=== PATIENT | female | born 1950 | race Caucasian/White ===

== ENCOUNTER 2016-06-19 20:28 | Emergency (ER) | payer OTHER ==
[~2016-06-19 20:28] MED LIST: ALBUTEROL SULF0.5 ML INH/SOL; ASPIR 8181 MG PO; BENTYL20 MG PO; CALCIUM CARBON260 M1 PO; CALCIUM500 M1 PO; CELEBREX100 M1 PO; CENTRUM SILVER1 TA1 PO; CIPRO 500MG TA500 MG PO; COLACE100 M1 PO; ECOTRIN81 MG PO; FLAG500 PO; GLIPIZIDE10 M2 PO; GLUCOPHAGE850 M2 PO; GLUCOPHAGE850 MG PO; GLUCOTROL10 MG PO; HYZAAR 25 MG-101 TAB PO; JANUVIA 100MG100 MG PO; JANUVIA100 M1 PO; LANTUS SOL100 UNIT/1 SC; LANTUS100 U/ML SC; LANTUS100 UNIT/1 SC; LIDOCAINE1 EACH TOP; LOPRESSOR100 MG PO; LOSARTAN POTASS1 TA2 PO; MILK THISTLE200 MG PO; NORVASC 10MG10 MG PO; NOVOLOG FL100 UNIT/1 SC; NOVOLOG100 UNIT/2 SC; OXYCODONE HCL5 M1 PO; PAZEO2.5 ML OPH; PREDNISONE 20MG20 MG PO; PROAIR HFA0.09 MG/Ac INH; SIMVASTATIN20 MG PO; SYMBICORT 160/41 PUF INH; TYLENOL ARTHRI650 M1 PO; TYLENOL EXTRA500 M2 PO; ULTRAM50 M1 PO; VALIUM2 MG PO; VENTOLIN1 PUF INH; VITAMIN C PO; VITAMIN D1000 UNIT PO; VITAMIN D2000 UNIT PO; [UNRECOGNIZED DRUG - OTHER] PO; [UNRECOGNIZED DRUG - OTHER] TD
--- NOTE | 2016-06-19 21:06 | ED GENERAL ADULT ---
History of Present Illness General Chief Complaint: General Adult Stated Complaint: "HERE FOR FOLLOW UP" Source: patient Exam Limitations: no limitations Allergies Coded Allergies: acetaminophen (From TYLENOL) (HEP C 03/06/16) Reconcile Medications Albuterol Sulfate (Ventolin) 1 UNIT PUF 2 PUF INH Q4-6 PRN PRN SHORTNESS OF BREATH Amlodipine (Norvasc 10MG) 10 MG TABLET 1 TAB PO DAILY HEART (Reported) Aspirin (Ecotrin) 81 MG ECT 1 TAB PO DAILY HEART/BLOOD (Reported) Budesonide/Formoterol Fumara (Symbicort 160-4.5 Mcg Inhaler) 160 MCG/4.5 MCG PUF 2 PUF INH BID ASTHMA (Reported) Calcium Carbonate (Calcium) 500 MG TABLET 1 TAB PO DAILY supplement Cholecalciferol (Vitamin D3) (Vitamin D) 1,000 UNIT TABLET 2 TAB PO DAILY SUPPLEMENT Docusate Sodium (Colace) 100 MG CAPSULE 1 CAP PO BID CONSTIPATION... TAKE WITH OXYCODONE TO PREVENT CONSTIPATION Glipizide 10 MG TABLET 1 TAB PO BID DM (Reported) Insulin-Lantus (Lantus) 100 UNIT/ML VIAL 36-38 UNITS SC QPM DM (Reported) LOSARTAN/HYDROCHLOROTHIAZIDE (Hyzaar 100-25 Tablet) 1 EACH TABLET 1 TAB PO DAILY HYPERTENSION (Reported) Metformin HCl (Glucophage) 850 MG TABLET 1 TAB PO BID DIABETES Metoprolol Tartrate (Lopressor) 100 MG TAB 1 TAB PO BID HYPERTENSION ( Reported) Oxycodone HCl 5 MG TABLET 1 TAB PO BIDP PRN PAIN TEN...[id number] Simvastatin (Zocor) 20 MG TAB 20 MG PO DAILY CHOLESTEROL (Reported) Sitagliptin Phosphate (Januvia) (Unknown Strength) TABLET (Unknown Dose) PO DAILY UNKNOWN (Reported) Triage Note: TRIAGE: 65 Y/O FEMALE PRESENTS WITH FAMILY FOR A "FOLLOW UP VISIT" S/P SEEN THE OTHER DAY AND HAD A CT SCAN WITH IV CONTRAST. REPORTS WAS INSTRUCTED TO FOLLOW UP TO "CHECK TO SEE IF THERE'S A RESIDUAL IN HER BLOOD OF THE DYE." Triage Nurses Notes Reviewed? yes Onset: Gradual Duration: better Timing: recent history Severity: mild Severity Numbers: 1 No Modifying Factors: none HPI: Patient is a 65-year-old female with a past medical history of type 2 diabetes currently on metformin who is evaluated and seen at [facility] emergency room on June 17 for concerns of abdominal bloating shortness of breath and back pain however no trauma has occurred patient received contrast CT scans in which patient was advised to discontinue metformin for 48 hours IN which patient has been compliant FOR THIS REQUEST. patient was given pain medications of oxycodone and Colace where patient has had significant resolution of presenting complaints on that day. Patient presents today for evaluation of kidney function to return to using metformin tomorrow. (AMMON RODRÍGUEZ) Vital Signs & Intake/Output Vital Signs & Intake/Output Vital Signs Date Time Temp Pulse Resp B/P Pulse O2 O2 Flow FiO2 Ox Delivery Rate 06/19 2346 Room Air 06/19 2304 97.6 67 18 131/77 98 Room Air 06/19 2038 98.2 78 18 150/83 96 Room Air Room Air Past History Travel History Traveled to [place] past 21 day No Medical History Any Pertinent Medical History? 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 No (AMMON RODRÍGUEZ) Review of Systems Review of Systems Constitutional: Reports: no symptoms. EENTM: Reports: no symptoms. Respiratory: Reports: no symptoms. Cardiovascular: Reports: no symptoms. GI: Reports: no symptoms. Genitourinary: Reports: no symptoms. Musculoskeletal: Reports: no symptoms. Skin: Reports: no symptoms. Neurological/Psychological: Reports: no symptoms. Hematologic/Endocrine: Reports: no symptoms. Immunologic/Allergic: Reports: no symptoms. All Other Systems: Reviewed and Negative (AMMON RODRÍGUEZ) Physical Exam Physical Exam General Appearance: well developed/nourished, no apparent distress, alert Comments: Well-developed well-nourished person in no acute distress HEENT: Normal EENT exam, . Neck: Supple, no lymphadenopathy, normal range of motion without pain or tenderness Back: no CVA tenderness. Cardiovascular: Regular rate and rhythms no murmurs rubs or gallops, normal JVP Respiratory: Chest nontender. No respiratory distress.breath sounds clear to auscultation bilaterally Abdomen: Soft, nontender nondistended, no appreciable organomegaly. Normal bowel sounds. No ascites Extremity: No edema, no calf tenderness to palpation, normal and equal pulses. Neuro: Alert oriented x3, motor sensory normal, Skin: No appreciable rash on exposed skin, skin is warm and dry. Psych: Mood and affect is normal, memory and judgment is normal. Core Measures ACS in differential dx? No CVA/TIA Diagnosis: No Severe Sepsis Present: No Septic Shock Present: No (AMMON RODRÍGUEZ) Progress Differential Diagnoses I considered the following diagnoses in my evaluation of the patient: [ Hyperglycemia, DKA, HHS, small bowel structuring, gastroenteritis,] Initial ED EKG: none (AMMON RODRÍGUEZ) Plan of Care: Orders Procedure Date/time Status FingerStick- Glucose 06/19 230 Active COMPREHENSIVE METABOLIC PANEL 06/19 2105 Complete Laboratory Tests 06/19/162118: Anion Gap 11, Estimated GFR > 60, BUN/Creatinine Ratio 35.0 H, Glucose 304 H, Calcium 10.0, Total Bilirubin 0.6, AST 23, ALT 37, Alkaline Phosphatase 65, Total Protein 8.8 H, Albumin 4.4, Globulin 4.4 H, Albumin/Globulin Ratio 1.0 L Patient currently looks well no apparent distress has nontender abdomen and per history has significant improvement of presenting complaints stated 2 days ago. Patient did note to have 300 glucose in which patient was given subcutaneous insulin and will be reevaluated. Nursing staff also discussed with me that they were concerned that patient and family members have been living on the floor in which we will discussed case with case management and they will call patient tomorrow for further evaluation and assistance I will leave a W 10 for case management to evaluate patient and to provide any Assistance necessary for patient 06/19/2016 11:30:53 PM blood glucose was noted to be 215 patient currently in no apparent distress 06/20/2016 12:05:37 AM Blood glucose was noted to be 185. Upon discharge patient looks well no apparent distress and I strongly advised patient to not take her home glucose medications tonight and to begin all medications tomorrow and they will comply. Discussed patient with Dr. Zamarripa who agrees with disposition and plan (AMMON RODRÍGUEZ) Departure Departure Disposition: HOME OR SELF CARE Condition: Stable Clinical Impression Primary Impression: Hyperglycemia Referrals: GEORGE ZUNIGA APRN (PCP/Family) Referred to [facility] as new patient No Additional Instructions: As discussed tomorrow, please continue all home medications as directed. Follow -up with your primary care doctor this week for recheck of symptoms. If symptoms worsen return to emergency room. Departure Forms: Customer Survey General Discharge Information (AMMON RODRÍGUEZ) PA/PRACTICE PERFORMANCE MANAGER Co-Sign Statement Statement: ED Attending supervision documentation- [] I saw and evaluated the patient. I have also reviewed all the pertinent lab results and diagnostic results. I agree with the findings and the plan of care as documented in the PA's/PRACTICE PERFORMANCE MANAGER's documentation. [x] I have reviewed the ED Record and agree with the PA's/PRACTICE PERFORMANCE MANAGER's documentation. [] Additions or exceptions (if any) to the PAs/PRACTICE PERFORMANCE MANAGER's note and plan are summarized below: [] (FLACO HAINES,SASHA Connell) Critical Care Note Critical Care Note Critical Care Time: non-applicable (AMMON RODRÍGUEZ)
[2016-06-20 00:10] VITALS: BP 132/72
--- NOTE | 2016-06-20 10:00 | NUR ---
Case Mgmnt TSF: I was left a W-10 and note from Panfilo Locke. He asked if I could set up HHS. It appears that patient has had [facility] previously. I called and spoke to patient who handed me over to her for translation. Patient and are willing to have HHS set up. I asked them if they wanted to use [facility] again and they are fine with that. I will place call to [facility]. I let know that I was going to ask for nursing and social work to go out and assess. CM continuing to follow.
--- NOTE | 2016-06-20 10:13 | NUR ---
Case Mgmnt TSF: I attempted [facility] x3 and was finally put through to the oncall solar panel installation supervisor's vm. I left a message to please call me back as I wanted to give them a referral that they've had before. I am pending call back. CM continuing to follow.
== END 2016-06-20 00:10 ==
LOC: ERH 20:28
DX: E11.65 Type 2 diabetes mellitus with hyperglycemia (principal); Z79.84 Long term (current) use of oral hypoglycemic drugs
CPT/HCPCS: 96372

== ENCOUNTER 2018-03-15 13:31 | Emergency (ER) | payer OTHER, MEDICARE ==
[~2018-03-15 13:31] MED LIST changes: +ASPIRIN EC81 M1 PO; +DOXAZOSIN MESYLA1 M1 PO; -ECOTRIN81 MG PO; +HYZAAR 100-251 EACH PO; -HYZAAR 25 MG-101 TAB PO; +LOPRESSOR100 M1 PO; -LOPRESSOR100 MG PO; -NORVASC 10MG10 MG PO; +NORVASC10 M1 PO; +PREDNISONE20 M1 PO; -SIMVASTATIN20 MG PO; +SYMBICORT 16010.2 GM INH; +ZITHROMAX250 M2 PO; +ZOCOR20 M1 PO
--- NOTE | 2018-03-15 14:07 | CT SCAN REPORT ---
EXAMINATION: CT HEAD WITHOUT CONTRAST CLINICAL INFORMATION: Headache and double vision. Evaluate for acute intracranial hemorrhage. COMPARISON: CT head 03/28/2016. TECHNIQUE: Contiguous axial imaging was performed from the skull base to vertex without intravenous administration of contrast. DLP: 610.72 mGy-cm FINDINGS: There is no acute intracranial hemorrhage or abnormal extra-axial collection. No intracranial mass effect or midline shift. Lateral and third ventricles are proportionate to the subarachnoid spaces. No hydrocephalus. De La Garza-white matter differentiation is grossly preserved and there is no evidence of acute territorial infarct. The calvarium and skull base are intact. Mastoid air cells and middle ear cavities are well aerated. Visualized paranasal sinuses are well aerated. IMPRESSION: Normal CT scan of the head.
[2018-03-15 14:21] LABS: ABSOLUTE BASOPHIL COUNT 0 /CUMM (0.0-0.2); ABSOLUTE EOSINOPHIL COUNT 0.2 /CUMM (0.0-0.7); ABSOLUTE GRANULOCYTE CT 4.2 /CUMM (1.4-6.5); ABSOLUTE LYMPH COUNT 2.8 /CUMM (1.2-3.4); ABSOLUTE MONOCYTE COUNT 0.6 /CUMM (0.10-0.60); BASOPHIL % 0.4 % (0.0-2.0); EOSINOPHIL % 2.2 % (0-5); HEMATOCRIT 37.2 % (37-47); MEAN CORPUSCULAR HGB 31.3 PG (27.0-31.0); MEAN CORPUSCULAR HGB CONC 34.9 G/DL (33.0-37.0); MEAN CORPUSCULAR VOLUME 89.7 FL (81.0-99.0); MEAN PLATELET VOLUME 7.9 FL (7.4-10.4); PLATELET COUNT 266 /CUMM (130-400); RBC DISTRIBUTION WIDTH 13.9 % (11.5-14.5); RED BLOOD CELL CT 4.15 /CUMM (4.20-5.40); WHITE BLOOD CELL COUNT 7.8 /CUMM (4.8-10.8)
[2018-03-15 14:34] LABS: PT 10.6 SEC (9.4-12.5); PTT 29 SEC (25-37)
--- NOTE | 2018-03-15 17:55 | ED NEURO DEFICIT/STROKE ---
History of Present Illness General Chief Complaint: General Adult Stated Complaint: SIB DR. JEAN-PAUL YI, DOUBLE VISION X2 WEEKS Source: patient, family Exam Limitations: no limitations Vital Signs & Intake/Output Vital Signs & Intake/Output Vital Signs Date Time Temp Pulse Resp B/P B/P Pulse O2 O2 Flow FiO2 Mean Ox Delivery Rate 03/15 1630 98.2 80 16 148/71 95 Room Air 03/15 1440 97.6 82 18 150/70 99 Room Air 03/15 1414 98 Room Air 03/15 1335 97.6 86 18 162/79 98 Room Air Allergies Coded Allergies: acetaminophen (From TYLENOL) (HEP C 02/11/17) Reconcile Medications Amlodipine Besylate (Norvasc) 10 MG TABLET 1 TAB PO DAILY HEART (Reported) Aspirin (Ecotrin*) 81 MG TABLET.DR 1 TAB PO DAILY HEART HEALTH (Reported) Azithromycin (Zithromax) 250 MG TABLET 1 TAB PO DAILY bronchitis Budesonide/Formoterol Fumarate (Symbicort 160-4.5 Mcg Inhaler) 160 MCG-4.5 MCG/ ACTUATION HFA.AER.AD 2 PUF INH BID BREATHING PROBLEMS (Reported) Calcium Carbonate (Calcium) 500 MG TABLET 1 TAB PO DAILY supplement Cholecalciferol (Vitamin D3) (Vitamin D) 1,000 UNIT TABLET 2 TAB PO DAILY SUPPLEMENT Docusate Sodium (Colace) 100 MG CAPSULE 1 CAP PO BID CONSTIPATION... TAKE WITH OXYCODONE TO PREVENT CONSTIPATION Doxazosin Mesylate 1 MG TABLET 1 TAB PO DAILY HEART (Reported) Glipizide 10 MG TABLET 1 TAB PO BID DM (Reported) Insulin-Lantus (Lantus) 100 UNIT/ML VIAL 36-38 UNITS SC QPM DM (Reported) Losartan/Hydrochlorothiazide (Hyzaar 100-25 Tablet) 100 MG-25 MG TABLET 1 TAB PO DAILY HTN (Reported) Metformin HCl (Glucophage) 850 MG TABLET 1 TAB PO BID DIABETES Metoprolol Tartrate (Lopressor) 100 MG TABLET 1 TAB PO BID HTN (Reported) Prednisone 20 MG TABLET 1 TAB PO BID bronchospasm Simvastatin (Zocor*) 20 MG TABLET 1 TAB PO DAILY CHOLESTEROL (Reported) Sitagliptin Phosphate (Januvia) 100 MG TABLET 1 TAB PO DAILY DIABETES ( Reported) Triage Note: 67 YO FEMALE TO TRIAGE FOR EVAL OF HEADACHE X6 DAYS AND DOUBLE VISION X3 DAYS. PT NOTED WITH R EYE CLOSED AND UNEQUAL SMILE. PA IN TRIAGE FOR EVAL. PT DENIES ANY NUMBNESS. C/O GENERAL WEAKNESS. Triage Nurses Notes Reviewed? yes HPI: 67-year-old female with multiple medical problems presents emergency department with right-sided headache, diplopia. Patient denies photo or phonophobia. Symptoms started 3-4 days ago. There are no clear relieving or exacerbating features. Patient describes the symptoms as moderate in nature. She denies any chest pain, shortness of breath, palpitations. Patient has no previous history of this. She denies any fevers, chills, cough, runny nose or other upper respiratory infection symptoms. Patient denies other focal neurologic complaints. Past History Travel History Traveled to [place] past 21 day No Medical History Any Pertinent Medical History? 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 No Review of Systems Review of Systems Constitutional: Denies: no symptoms. EENTM: Reports: double vision. Respiratory: Denies: no symptoms. Cardiovascular: Denies: no symptoms. GI: Denies: no symptoms. Genitourinary: Denies: no symptoms. Musculoskeletal: Denies: no symptoms. Skin: Denies: no symptoms. Neurological/Psychological: Reports: headache. Hematologic/Endocrine: Denies: no symptoms. Immunologic/Allergic: Denies: no symptoms. All Other Systems: Reviewed and Negative Physical Exam Physical Exam General Appearance: well developed/nourished, no apparent distress, alert, awake Head: atraumatic, normal appearance Eyes: Right: other. Bilateral: PERRL, EOMI. Ears, Nose, Throat: normal ENT inspection, moist mucous membrane Neck: normal inspection, supple, full range of motion Respiratory: normal breath sounds, lungs clear Cardiovascular: regular rate/rhythm Gastrointestinal: normal bowel sounds, soft, non-tender Back: normal inspection Extremities: normal range of motion, evidence of injury Psychiatric: awake, alert, oriented x 3 Cranial Nerves: ptosis of right eyelid Motor/Sensory: no motor/sensory deficits Core Measures CVA/TIA Diagnosis: No Sepsis Present: No Sepsis Focused Exam Completed? No Progress Differential Diagnosis: Zamarripa's Palsy, migraine YI, stroke, TIA, Temporal arteritis Plan of Care: Orders Procedure Date/time Status WESTERGREN SED RATE 03/15 1506 Complete Add-on Test (ER Only) 03/15 1451 Active PARTIAL THROMBOPLASTIN TIME 03/15 1335 Complete PROTHROMBIN TIME 03/15 1335 Complete TROPONIN LEVEL 03/15 1334 Complete COMPREHENSIVE METABOLIC PANEL 03/15 1334 Complete CBC WITHOUT DIFFERENTIAL 03/15 1334 Complete EKG 03/15 1334 Active Laboratory Tests 03/15/18 1512: ESR Westergren 34 H 03/15/18 1456: ESR Westergren Cancelled 03/15/18 1410: Anion Gap 12, Estimated GFR 56 L, BUN/Creatinine Ratio 34.0 H, Glucose 216 H, Calcium 10.0, Total Bilirubin 0.5, AST 30, ALT 44, Alkaline Phosphatase 73, Troponin I < 0.01, Total Protein 8.5 H, Albumin 4.5, Globulin 4.0, Albumin/ Globulin Ratio 1.1, PT 10.6, INR 0.97, APTT 29, CBC w Diff NO MAN DIFF REQ, RBC 4.15 L, MCV 89.7, MCH 31.3 H, MCHC 34.9, RDW 13.9, MPV 7.9, Gran % 54.0, Lymphocytes % 36.0, Monocytes % 7.4, Eosinophils % 2.2, Basophils % 0.4, Absolute Granulocytes 4.2, Absolute Lymphocytes 2.8, Absolute Monocytes 0.6, Absolute Eosinophils 0.2, Absolute Basophils 0 PATIENT: MARY ELLEN FORRESTER PRESENT AGE: 67 PATIENT ACCOUNT NO: [id number] : 52 LOCATION: [facility] ORDERING PHYSICIAN: Silvia FIGUEREDO SERVICE DATE: 03/15/18-1333 EXAM TYPE: CAT - CT HEAD WO IV CONTRAST EXAMINATION: CT HEAD WITHOUT CONTRAST CLINICAL INFORMATION: Headache and double vision. Evaluate for acute intracranial hemorrhage. COMPARISON: CT head 03/28/2016. TECHNIQUE: Contiguous axial imaging was performed from the skull base to vertex without intravenous administration of contrast. DLP: 610.72 mGy-cm FINDINGS: There is no acute intracranial hemorrhage or abnormal extra-axial collection. No intracranial mass effect or midline shift. Lateral and third ventricles are proportionate to the subarachnoid spaces. No hydrocephalus. De La Garza-white matter differentiation is grossly preserved and there is no evidence of acute territorial infarct. The calvarium and skull base are intact. Mastoid air cells and middle ear cavities are well aerated. Visualized paranasal sinuses are well aerated. IMPRESSION: Normal CT scan of the head. DICTATED BY: Betito Brian MD DATE/TIME DICTATED:03/15/181401 PRESIDENT + PUBLISHER:ISABELLA DATE/TIME TRANSCRIBED:03/15/181401 CONFIDENTIAL, DO NOT COPY WITHOUT APPROPRIATE AUTHORIZATION. <Electronically signed in Other Vendor System> SIGNED BY: Betito Brian MD 03/15 67-year-old female with history of 6 cranial nerve palsy, diabetes, hypertension presents with double vision. On examination, patient has a right facial droop with ptosis. She has no other focal neurologic deficits. CT scan of the brain identified no acute focal abnormalities. Lab work revealed hyperglycemia. There is no elevated sedimentation rate to suggest temporal arteritis. I discussed care with Dr. Villanueva, neurology, bleeding patient has a peripheral nerve palsy. Patient could be discharged on prednisone, however, given patient's diabetes, we will withhold this medicine for now. Will refer to neurology and primary care for follow-up. Initial ED EKG: normal intervals, normal p-waves, normal QRS complex, normal sinus rhythm, nonspecific ST T wave chg, LAFB Prior EKG: changed Departure Departure Disposition: HOME OR SELF CARE Condition: Stable Clinical Impression Primary Impression: Peripheral nerve palsy Referrals: Maria Alejandra Chapman APRN (PCP/Family) Departure Forms: Customer Survey General Discharge Information
[2018-03-15 18:50] VITALS: BP 131/70
== END 2018-03-15 18:51 ==
LOC: ERH 13:31
PROVIDERS: Physician Assistant
DX: G58.8 Other specified mononeuropathies (principal); I10 Essential (primary) hypertension; J45.909 Unspecified asthma, uncomplicated; B19.20 Unspecified viral hepatitis C without hepatic coma; E11.9 Type 2 diabetes mellitus without complications; Z79.84 Long term (current) use of oral hypoglycemic drugs; Z79.82 Long term (current) use of aspirin
CPT/HCPCS: 93005; 93010